=== PATIENT | male | born 1985 | race Caucasian/White ===

== ENCOUNTER 2019-02-21 20:35 | Emergency (ER) | payer OTHER ==
[~2019-02-21] VITALS: Ht 177.8 cm; Wt 72.6 kg
[2019-02-21] MEDS ORDERED: LORAZEPAM INJ 2 MG/ML VIAL ONE (21:15)
[2019-02-21 21:17] LABS: BASOPHILS # (AUTO) 0.1 /CMM (0.0-0.2); BASOPHILS % (AUTO) 0.8 % (0.0-2.0); EOSINOPHILS % (AUTO) 0.3 % (0.0-6.0); HEMATOCRIT 53 % (39-51); HEMOGLOBIN 18.4 g/dL (13.5-17.5); LYMPHOCYTES # (AUTO) 2.4 /CMM (0.8-4.8); LYMPHOCYTES % (AUTO) 26.3 % (20.0-44.0); MEAN CORPUSCULAR HGB CONC 35 g/dl (31.0-36.0); MEAN CORPUSCULAR VOLUME 92 fL (80-96); MONOCYTES # (AUTO) 0.7 /CMM (0.1-1.30); MONOCYTES % (AUTO) 7.4 % (2.0-12.0); NEUTROPHILS # (AUTO) 5.9 /CMM (1.8-8.9); NEUTROPHILS % (AUTO) 65.2 % (43.0-81.0); PLATELET COUNT (AUTO) 237 /CMM (150-450); RED BLOOD CELL COUNT(AUTO) 5.78 MIL/uL (4.5-6.0); WHITE BLOOD COUNT (AUTO) 9.1 K/uL (4.3-11.0)
[2019-02-21 21:25] LABS: CALCIUM, SERUM 9.1 mg/dL (8.5-10.1); CREATININE 1.3 mg/dL (0.6-1.3); POTASSIUM 4.3 mmol/L (3.5-5.1)
[2019-02-21] MEDS ORDERED: IV NS 0.9% 1,000 ML BAG IV ONE (21:30)
[2019-02-21] MEDS ORDERED: LORAZEPAM INJ 2 MG/ML VIAL IVP ONE (21:30)
--- NOTE | 2019-02-21 21:30 | NUR ---
BIBSELF FROM HOME. TO ER BED 13. AAOX4. AMBULATORY. NO RESP DISTRESS NOTED, BREATHING EVEN AND UNLABORED. C/O ALCHOHOL WITHDRAWAL. PT REPORTS LAST DRINK 12HOURS AGO. PT REPORTS AURA OF COLOR WHEEL AND FLASHING LIGHT BUT NO SEIAURE. PT REPORT LOSING CONSCIOUSNESS INTERMITENTLY. PT IS WORRIED THAT HE WILL HAVE A BAD WITHDRAWAL HOW HE EXPERIENCED FORM LAST TIME. PT REPORTS HAVING ETOH WITHDRAWAL TX 1 YR AGO. MBLOOD DRAWN
[2019-02-21 21:31] LABS: ALBUMIN 4.5 g/dL (3.4-5.0); BILIRUBIN,DIRECT 0.3 mg/dL (0.0-0.2); BILIRUBIN,TOTAL 1.4 mg/dL (0.2-1.0); TOTAL PROTEIN, SERUM 7.4 g/dL (6.4-8.2)
[2019-02-21 22:21] VITALS: BP 133/85
--- NOTE | 2019-02-21 22:28 | NUR ---
Patient discharged to home in stable condition. Written and verbal after care instructions given. Patient verbalizes understanding of instruction.IV removed. Catheter intact and site benign. Pressure and 4x4 applied to site. No bleeding noted. Pt ambulatory with a steady gait
== END 2019-02-21 22:29 | disposition home or self-care (01) ==
LOC: ER 20:42
DX: F10.239 Alcohol dependence with withdrawal, unspecified (principal); Y90.6 Blood alcohol level of 120-199 mg/100 ml
CPT/HCPCS: 36415; 80048; 80076; 80307; 85025; 96374; 99283; J2060; J7030; G0480

== ENCOUNTER 2019-04-01 23:25 | Emergency (ER) | payer OTHER ==
[2019-04-02] MEDS ORDERED: IV D5/ 0.9% NACL 1,000 ML IV ONE (00:17)
[2019-04-02] MEDS ORDERED: LORAZEPAM INJ 2 MG/ML VIAL IV ONE (01:00)
[2019-04-02] MEDS ORDERED: LORAZEPAM INJ 2 MG/ML VIAL ONE (01:14)
== END 2019-04-02 01:56 | disposition home or self-care (01) ==
DX: F10.239 Alcohol dependence with withdrawal, unspecified (principal); R56.9 Unspecified convulsions; Y90.7 Blood alcohol level of 200-239 mg/100 ml
CPT/HCPCS: 36415; 70450; 80048; 80076; 80305; 80307; 85025; 85730; 96374; 99284; J2060; J3490